=== PATIENT | female | born 1935 | race Caucasian/White ===

== ENCOUNTER 2017-07-08 20:25 | Observation (INO) | payer MEDICARE, MEDICAID ==
[~2017-07-08] VITALS: Ht 147.3 cm; Wt 55.6 kg
[~2017-07-08 20:25] MED LIST: CALCIUM WITH VI1 TA1 PO; CARAFATE 1GM TAB1 GM PO; FENOFIBRATE MI134 MG PO; FENOFIBRATE160 MG PO; HYDROCODONE-APA1 TA1 PO; INDAPAMIDE1.25 MG OR; LEVAQUIN500 MG PO; LOPRESSOR 25MG.25 M1 OR; LOPRESSOR50 MG PO; METOPROLOL SUC100 M1 PO; MIRALAX17 GM/PACK PO; NATURE'S BLE2500 MCG PO; POTASSIUM CHLO10 MEQ PO; PRILOSEC OTC20 MG PO; ROBITUSSIN DM 105 ML PO
[2017-07-08 20:29] VITALS: BP 141/70
--- OUTSIDE RECORDS SUMMARY | 2017-07-08 20:53 | External Medical Summary Rpt | CCD ---
Author Author , RDONEY STEVENS Address Unknown Phone [email or web address] Care Team Providers Care Truck Assembler Name Role Phone Pepito Bloom MD, Unavailable Unavailable Pepito Bloom MD Purpose Continuity of Care Document - 09-09-2013 through 2016 Problems Code Diagnosis DOS Provider Status 276.51 276.51 09-10-2013 [facility] 276.8 276.8 09-10-2013 [place] HYPOPOTASSE [facility] 401.9 401.9 09-10-2013 [place] HYPERTENSIO [facility] N NOS Hospital [id number] 09-10-2013 [place] BRONCOPNEUM [facility] NOS V10.90 V10.90 09-10-2013 [facility] HISTORY OF Hospital UNSPECIFIED MALIGNANT NEOPLASM V14.2 V14.2 09-10[facility]2013 [facility] V14.8 V14.8 09-10-2013 [facility] ALLERGY [place] [facility] V58.69 V58.69 OTH 09-10-2013 [place] MED,,[facility] ENT USE Hospital Allergies, Adverse Reactions, Alerts Type Drug Allergy Propensity to adverse reactions to drug Adverse Reaction to Substance Substance Reaction Severity SULFA (sulfonamide) Unknown Unknown Cephalexin Unknown Unknown Ibuprofen Unknown Unknown Phenobarbital Unknown Unknown Tetanus Toxoid Unknown Unknown Aspirin Unknown Unknown Medications Na ND Rx Da Fi Fi Am Da Di Ph RX Ph St me C No te ll ll ou ys ag ar # ys at rm s nt no ma ic us Or Da si cy ia de te s n re d LE 00 01 0 No VA 59 -0 LB 12 4- Lo UT 91 20 ng ER 92 14 er OL 3 Ac 0. ti 63 ve MG /3 ML NE B PO 00 01 0 No TA 40 -0 SS 97 3- Lo IU 07 20 ng M 42 14 er CL 6 Ac 10 ti ve ME Q/ 10 0 ML SO L LE 50 01 1 No VA 45 -0 QU 80 3- Lo IN 16 20 ng -D 80 14 er 5W 1 Ac 50 ti 0 ve MG /1 00 ML BA G SO 00 01 1 No DI 40 -0 UM 97 3- Lo 98 20 ng CH 30 14 er LO 9 RI Ac DE ti ve 0. 9% SO SHARON TI ON LO 00 01 1 No VE 07 -0 NO 50 3- Lo X 62 20 ng 40 04 14 er 1 MG Ac /0 ti .4 ve ML SY RI NG E IP 00 01 1 No RA 48 -0 T- 70 3- Lo AL 20 20 ng BU 10 14 er T 1 0. Ac 5- ti 3( ve 2. 5) MG /3 ML Vital Signs 09-10-2013 13:39 Name Value Interpretat Reference Comment ion Range Body 97.8 [degF] Temperature BP 93 mm[Hg] Diastolic BP Systolic 140 mm[Hg] Heart 82 /min Rate/Pulse Respiratory 20 /min Rate 09-10-2013 08:36 Name Value Interpretat Reference Comment ion Range O2% 97 % 09-09-2013 15:42 Name Value Interpretat Reference Comment ion Range O2% 97 % 09-09-2013 10:30 Name Value Interpretat Reference Comment ion Range Body 97.7 [degF] Temperature BP 74 mm[Hg] Diastolic BP Systolic 155 mm[Hg] Heart 75 /min Rate/Pulse Height 147.32 cm Respiratory 20 /min Rate Weight 110 [lb_av] Measured Weight 50.094 kg Measured Results Labs Lab Lab Date Result Refere Interp Status Commen Order Detail nces retati t Range on BASIC METABOLIC PANEL (09-10-2013 06:25) Glucose 99 74-106 complet 014 mg/dL ed Bld-mCn 06:25 c BUN 4 mg/dL 7-18 complet Bld-mCn 014 ed c 06:25 Creat 0.6 0.6-1.0 complet SerPl-m 014 mg/dL ed Cnc 06:25 Creat 63 50-200 complet Cl 014 ML/MIN ed predict 06:25 ed SerPl C-G-vRa te GFR/BSA 97 59- complet .pred 014 ML/MIN ed SerPl 06:25 Schwart z-vRate Sodium 144 136-145 complet SerPl-s 014 mmoL/L ed Cnc 06:25 Potassi 2 3.0 3.5-5.1 complet um 014 mmoL/L ed SerPl-s 06:25 Cnc Chlorid 107 98-107 complet e 014 mmoL/L ed SerPl-s 06:25 Cnc CO2 30 21.0-32 complet SerPl-s 014 mmoL/L .0 ed Cnc 06:25 Calcium 2 8.0 8.5-10. complet 014 mg/dL 1 ed SerPl-m 06:25 Cnc CBC with AUTO DIFF (09-10-2013 06:25) WBC # -04-2 3.7 4.8-10. complet Bld 014 K/MM3 8 ed Auto 06:25 RBC # 09-10-2 4.40 4.2-5.4 complet Bld 014 M/mm3 ed Auto 06:25 Hgb 2 13.2 12.2-16 complet Bld-mCn 014 g/dL .2 ed c 06:25 Hct Fr 39.3 % 37.0-47 complet Bld 014 .0 ed 06:25 MCV RBC 09-10-2 89.4 fl 82.2-97 complet 014 .8 ed 06:25 MCH RBC 09-10-2 30.0 pg 27-31.2 complet Qn 014 ed Auto 06:25 MEAN 33.6 31.8-35 complet CORPUSC 014 g/dl .4 ed ULAR 06:25 HGB CONC RDW RBC 09-10-2 14.6 % 11.5-17 complet Auto 014 .5 ed 06:25 Platele 2 106 142-424 complet t Bld 014 K/mm3 ed Ql 06:25 Manual MEAN 2 8.8 fl 7.4-10. complet PLATELE 014 4 ed T 06:25 VOLUME Granulo 09-10-2 43.2 % 37.0-80 complet cytes 014 .0 ed Fr Bld 06:25 Auto LYMPH % 09-10-2 45.2 % 10-50.0 complet 014 ed 06:25 Monocyt 09-10-2 10.4 % 1.7-9.3 complet es Fr 014 ed Bld 06:25 Auto Eosinop 09-10-2 1.0 % 0.1-12. complet hil Fr 014 0 ed Bld 06:25 Auto Basophi 09-10-2 0.3 % 0.1-2.0 complet ls Fr 014 ed Bld 06:25 Auto Granulo 09-10-2 1.6 1.8-7.8 complet cytes # 014 K/mm3 ed Bld 06:25 Auto Lymphoc 09-10-2 1.7 0.7-4.5 complet ytes Fr 014 K/mm3 ed Bld 06:25 Auto Monocyt 09-10-2 0.4 0.1-1.0 complet es # 014 K/mm3 ed Bld 06:25 Auto Eosinop 09-10-2 0.0 0.0-0.4 complet hil # 014 K/mm3 ed Bld 06:25 Auto Basophi 09-10-2 0.0 0-0.2 complet ls # 014 K/MM3 ed Bld 06:25 Auto URINALYSIS/COMPLETE (09-09-2013 13:00) URINE DK YELLOW complet COLOR 014 YELLOW ed 13:00 URINE SL CLEAR complet APPEARA 014 CLOUDY ed NCE 13:00 URINE NEGATIV NEG complet GLUCOSE 014 E ed - 13:00 DIPSTIC K URINE NEGATIV NEG complet BILIRUB 014 E ed IN - 13:00 DIPSTIC K URINE NEGATIV NEG complet KETONE 014 E mg/dL ed 13:00 URINE 1.015 1.005-1 complet SPECIFI 014 UNK .030 ed C 13:00 GRAVITY URINE TRACE-I NEG complet BLOOD 014 NTACT ed 13:00 URINE 7.5 UNK 5.0-8.5 complet PH 014 ed 13:00 URINE NEGATIV NEG complet PROTEIN 014 E mg/dL ed - 13:00 DIPSTIC K URINE 1.0 NEG complet UROBILI 014 E.U./dL ed NOGEN - 13:00 DIPSTIC K URINE NEGATIV NEG complet NITRATE 014 E ed - 13:00 DIPSTIC K URINE 1+ NEG complet LEUK 014 ed ESTERAS 13:00 E URINE OCC 0 complet RBC 014 rbc/hpf ed 13:00 URINE 3-5 O complet WBC 014 wbc/hpf ed 13:00 COMPREHENSIVE METABOLIC PANEL (09-09-2013 12:25) Glucose 102 74-106 complet 014 mg/dL ed Bld-mCn 12:25 c BUN 8 mg/dL 7-18 complet Bld-mCn 014 ed c 12:25 Creat 0.6 0.6-1.0 complet SerPl-m 014 mg/dL ed Cnc 12:25 GFR/BSA 97 59- complet .pred 014 ML/MIN ed SerPl 12:25 Schwart z-vRate Sodium 142 136-145 complet SerPl-s 014 mmoL/L ed Cnc 12:25 Potassi 2.9 3.5-5.1 Low complet um 014 mmoL/L alert ed SerPl-s 12:25 Cnc Chlorid 103 98-107 complet e 014 mmoL/L ed SerPl-s 12:25 Cnc CO2 31 21.0-32 complet SerPl-s 014 mmoL/L .0 ed Cnc 12:25 Calcium 8.3 8.5-10. complet 014 mg/dL 1 ed SerPl-m 12:25 Cnc Prot 6.3 6.4-8.2 complet SerPl-m 014 gm/dL ed Cnc 12:25 Albumin 2.5 3.4-5.0 complet 014 gm/dL ed SerPl-m 12:25 Cnc Globuli 3.8 1.3-3.2 complet n 014 gm/dL ed Ser-mCn 12:25 c Albumin 0.7 UNK 1.1-1.8 complet /Glob 014 ed SerPl-m 12:25 Rto Bilirub 0.5 0.2-1.0 complet 014 mg/dL ed SerPl-m 12:25 Cnc AST 18 U/L 15-37 complet SerPl-c 014 ed Cnc 12:25 ALT -03-2 32 U/L 30-65 complet SerPl-c 014 ed Cnc 12:25 ALP -03-2 86 U/L 50-136 complet SerPl-c 014 ed Cnc 12:25 CBC with AUTO DIFF (09-09-2013 12:25) WBC # 01-03-2 5.6 4.8-10. complet Bld 014 K/MM3 8 ed Auto 12:25 RBC # 01-03-2 4.72 4.2-5.4 complet Bld 014 M/mm3 ed Auto 12:25 Hgb -03-2 14.2 12.2-16 complet Bld-mCn 014 g/dL .2 ed c 12:25 Hct Fr 03-2 41.8 % 37.0-47 complet Bld 014 .0 ed 12:25 MCV RBC -03-2 88.5 fl 82.2-97 complet 014 .8 ed 12:25 MCH RBC 03-2 30.1 pg 27-31.2 complet Qn 014 ed Auto 12:25 MEAN 09-09-2 34.0 31.8-35 complet CORPUSC 014 g/dl .4 ed ULAR 12:25 HGB CONC RDW RBC 03-2 14.8 % 11.5-17 complet Auto 014 .5 ed 12:25 Platele -03-2 138 142-424 complet t Bld 014 K/mm3 ed Ql 12:25 Manual MEAN 03-2 8.6 fl 7.4-10. complet PLATELE 014 4 ed T 12:25 VOLUME Granulo -03-2 75.8 % 37.0-80 complet cytes 014 .0 ed Fr Bld 12:25 Auto LYMPH % -03-2 15.7 % 10-50.0 complet 014 ed 12:25 Monocyt -03-2 7.8 % 1.7-9.3 complet es Fr 014 ed Bld 12:25 Auto Eosinop -03-2 0.4 % 0.1-12. complet hil Fr 014 0 ed Bld 12:25 Auto Basophi -03-2 0.2 % 0.1-2.0 complet ls Fr 014 ed Bld 12:25 Auto Granulo -03-2 4.2 1.8-7.8 complet cytes # 014 K/mm3 ed Bld 12:25 Auto Lymphoc 09-09-2 0.9 0.7-4.5 complet ytes Fr 014 K/mm3 ed Bld 12:25 Auto Monocyt 09-09-2 0.4 0.1-1.0 complet es # 014 K/mm3 ed Bld 12:25 Auto Eosinop 09-09-2 0.0 0.0-0.4 complet hil # 014 K/mm3 ed Bld 12:25 Auto Basophi 2 0.0 0-0.2 complet ls # 014 K/MM3 ed Bld 12:25 Auto MYCOPLASMA IGM (RAPID) (09-09-2013 12:25) MYCOPLA 2 NON-SHELL NONREAC complet SMA IGM 014 CTIVE TIVE ed 12:25 (RAPID) Encounters Encounter Start End Date Code Location Performer Type Date Inpatient IMP Jim Bloom MD ([place]) 4 11:30 4 13:55 [facility]
--- OUTSIDE RECORDS SUMMARY | 2017-07-08 20:53 | External Medical Summary Rpt | CCD ---
Author Author , RODNEY STEVENS Address Unknown Phone .Sqrrl Care Team Providers Care Barrel Roller Name Role Phone Pepito Bloom MD, Unavailable Unavailable Pepito Bloom MD Purpose Continuity of Care Document - 09-09-2013 through 2016 Problems Code Diagnosis DOS Provider Status 276.51 276.51 09-10-2013 [facility] 276.8 276.8 09-10-[address] [place] [address] [facility] 401.9 401.9 09-10-2013 [place] HYPERTENSIO [facility] N NOS Hospital 485 485 09-10-2013 [place] BRONCOPNEUM [facility] NOS V10.90 V10.90 09-10-2013 [facility] HISTORY OF Hospital UNSPECIFIED MALIGNANT NEOPLASM V14.2 V14.2 09-10[facility] V14.8 V14.8 09-10-2013 [facility] ALLERGY [facility] V58.69 V58.69 OTH 09-10-2013 [place] MED,,[facility] ENT USE Hospital Allergies, Adverse Reactions, [...] Bloom MD ([place]) 4 11:30 4 13:55 [facility]
--- OUTSIDE RECORDS SUMMARY | 2017-07-08 20:54 | External Medical Summary Rpt | CCD ---
Author Author , RODNEY STEVENS Address Unknown Phone [email or web address] Immunization Name Date Rout CVX Reac Dose Comm Prov Is Faci e tion ent ider Refu lity Give sed n Infl 09-1 0.5 Hist PD20 No PD20 uenz 1-20 mL oric 255 255 a 17 al Quad Info rmat W/Pr ion es - Sour ce Unsp ecif ied PPV2 02-0 Intr 33 0.5 Hist PD20 No PD20 3 3-20 amus mL oric 255 255 17 cula al r Info rmat ion - Sour ce Unsp ecif ied Td 06-0 Intr 9 999 Hist H149 No H149 (chilo 5-19 amus oric lt), 96 cula al r Info adso rmat rbed ion - Sour ce Unsp ecif ied
--- OUTSIDE RECORDS SUMMARY | 2017-07-08 20:54 | External Medical Summary Rpt ---
Author Author RODNEY Ginger, [employer] Address Unknown Phone Unavailable Results Comprehensive metabolic 2000 panel in Serum or Plasma Observa Value Referen Units Interpr Notes Date tion ce etation Range Albumin/G 1.1 - 1.8 No Low No Sep 12 lobulin informati informati 2017 [Mass on in on in 10:03 AM ratio] in source source Serum or data data Plasma Albumin 3.4 - 5.0 gm/dL Low No Sep 12 [Mass/vol informati 2017 ume] in on in 10:03 AM Serum or source Plasma data Alkaline 46 - 116 U/L Normal No Sep 12 phosphata informati 2017 se on in 10:03 AM [Enzymati source c data activity/ volume] in Serum or Plasma Bilirubin 0.2 - 1.0 mg/dL Normal No Sep 12 .total informati 2017 [Mass/vol on in 10:03 AM ume] in source Serum or data Plasma Urea 7 - 18 mg/dL Normal No Sep 12 nitrogen informati 2017 [Mass/vol on in 10:03 AM ume] in source Serum or data Plasma Calcium 8.5 - mg/dL Normal No Sep 12 [Mass/vol 10.1 informati 2017 ume] in on in 10:03 AM Serum or source Plasma data Chloride 98 - 107 mmoL/L Normal No Sep 12 [Moles/vo informati 2017 lume] in on in 10:03 AM Serum or source Plasma data Carbon 21.0 - mmoL/L High No Sep 12 dioxide, 32.0 informati 2017 total on in 10:03 AM [Moles/vo source lume] in data Serum or Plasma Creatinin 0.55 - mg/dL Low No Sep 12 e 1.02 informati 2017 [Mass/vol on in 10:03 AM ume] in source Serum or data Plasma Estimated 59- ML/MIN No REFERENCE Sep 12 informati RANGE: 2017 glomerula on in >60 10:03 AM r source ML/MIN/1. filtratio data 73 SQUARE n rate METERSIf (GF this patient is -A merican, then multiply theresult by 1.210. Globulin 1.3 - 3.2 gm/dL High No Sep 12 [Mass/vol informati 2016 ume] in on in 10:03 AM Serum source data Glucose 74 - 106 mg/dL Normal No Sep 12 [Mass/vol informati 2016 ume] in on in 10:03 AM Serum or source Plasma data Potassium 3.5 - 5.1 mmoL/L Normal No Sep 12 inform2016 [Moles/vo on in 10:03 AM lume] in source Serum or data Plasma Sodium 136 - 145 mmoL/L Normal No Sep 12 [Moles/vo informati 2016 lume] in on in 10:03 AM Serum or source Plasma data Aspartate 15 - 37 U/L Normal No Sep 12 inform2016 aminotran on in 10:03 AM sferase source [Enzymati data c activity/ volume] in Serum or Plasma Alanine 12 - 78 U/L Normal No Sep 12 aminotran inform2016 sferase on in 10:03 AM [Enzymati source c data activity/ volume] in Serum or Plasma Protein 6.4 - 8.2 gm/dL Normal No Sep 12 [Mass/vol informati 2017 ume] in on in 10:03 AM Serum or source Plasma data Lipid 1996 panel in Serum or Plasma Observa Value Referen Units Interpr Notes Date tion ce etation Range Cholester < 200 mg/dL No No Sep 12 ol informati inform2016 [Moles/vo on in on in 10:03 AM lume] in source source Unspecifi data data ed specimen Cholester 40 - 60 MG/DL High No Sep 12 ol in HDL informati 2016 on in 10:03 AM [Mass/vol source ume] in data Serum or Plasma Cholester 0 - 130 mg/dL Normal No Sep 12 ol in LDL informati 2017 on in 10:03 AM [Mass/vol source ume] in data Serum or Plasma by calculati on Triglycer 30 - 200 mg/dL Normal No Sep 12 raymond inform2016 [Moles/vo on in 10:03 AM lume] in source Serum or data Plasma Cholester 0 - 40 No Normal No Sep 12 ol in informati informati 2017 VLDL on in on in 10:03 AM [Mass/vol source source ume] in data data Serum or Plasma Thyrotropin [Units/volume] in Serum or Plasma Observa Value Referen Units Interpr Notes Date tion ce etation Range Thyrotrop 0.358 - uIU/ml No No Sep 12 in 3.740 informati inform2016 [Units/vo on in on in 10:03 AM lume] in source source Serum or data data Plasma CBC W Auto Differential panel in Blood Observa Value Referen Units Interpr Notes Date tion ce etation Range Basophils 0 - 0.2 K/MM3 Normal No Sep 12 inform2016 [#/volume on in 10:03 AM ] in source Blood by data Automated count Basophils 0.1 - 2.0 % Normal No Sep 12 /100 inform2016 leukocyte on in 10:03 AM s in source Blood by data Automated count Eosinophi 0.0 - 0.4 K/mm3 Normal No Sep 12 ls inform2016 [#/volume on in 10:03 AM ] in source Blood by data Automated count Eosinophi 0.1 - % Normal No Sep 12 ls/100 12.0 inform2016 leukocyte on in 10:03 AM s in source Blood by data Automated count Granulocy 1.8 - 7.8 K/mm3 Normal No Sep 12 estefanía 2016 [#/volume on in 10:03 AM ] in source Blood by data Automated count Granulocy 37.0 - % Normal No Sep 12 estefanía/100 80.0 inform2016 leukocyte on in 10:03 AM s in source Blood by data Automated count Hematocri 37.0 - % Normal No Sep 12 t [Volume 47.0 informati 2016 on in 10:03 AM Fraction] source of Blood data Hemoglobi 12.2 - g/dL Normal No Sep 12 n 16.2 inform2016 [Mass/vol on in 10:03 AM ume] in source Blood data Lymphocyt 0.7 - 4.5 K/mm3 Normal No Sep 12 es inform2016 [#/volume on in 10:03 AM ] in source Unspecifi data ed specimen by Automated count Lymphocyt 10 - 50.0 % Normal No Sep 12 es inform2016 [#/volume on in 10:03 AM ] in source Unspecifi data ed specimen by Automated count Erythrocy 27 - 31.2 pg Normal No Sep 12 te mean inform 2017 corpuscul on in 10:03 AM ar source hemoglobi data n [Entitic mass] Erythrocy 31.8 - g/dl Normal No Sep 12 te mean 35.4 inform2016 corpuscul on in 10:03 AM ar source hemoglobi data n concentra tion [Mass/vol ume] by Automated count Erythrocy 82.2 - fl Normal No Sep 12 te mean 97.8 inform2016 corpuscul on in 10:03 AM ar volume source [Entitic data volume] by Automated count Monocytes 0.1 - 1.0 K/mm3 Normal No Sep 12 inform2016 [#/volume on in 10:03 AM ] in source Blood by data Automated count Monocytes 1.7 - 9.3 % Normal No Sep 12 /100 inform 2017 leukocyte on in 10:03 AM s in source Blood by data Automated count Platelet 7.4 - fl Normal No Sep 12 mean 10.4 inform2016 volume on in 10:03 AM [Entitic source volume] data in Blood by Automated count Platelets 142 - 424 K/mm3 No No Sep 12 informati informati 2016 [#/volume on in on in 10:03 AM ] in source source Blood data data Erythrocy 4.2 - 5.4 M/mm3 Normal No Sep 12 estefanía inform2016 [#/volume on in 10:03 AM ] in source Amniotic data fluid Erythrocy 11.5 - % Normal No Sep 12 te 17.5 inform2016 distribut on in 10:03 AM ion width source [Entitic data volume] by Automated count Leukocyte 4.8 - K/MM3 Normal No Sep 12 s 10.8 informati 2016 [#/volume on in 10:03 AM ] in source Blood data
--- OUTSIDE RECORDS SUMMARY | 2017-07-08 20:54 | External Medical Summary Rpt | CCD ---
Author Author , RODNEY STEVENS Address Unknown Phone [email or web address] Immunization Name Date Rout CVX Reac Dose [...]
--- OUTSIDE RECORDS SUMMARY | 2017-07-08 20:54 | External Medical Summary Rpt | CCD ---
Author Author [employer] Address Unknown Phone Unavailable Purpose Continuity of Care Document - through 2016
--- NOTE | 2017-07-08 20:59 | Emergency Room Report ---
History of Present Illness Time Seen by 2030 Presenting Problem in Triage Pt arrived:Wheelchair Presenting Problem:Pt. has been vomiting X 3 days. She also has chills this evening. 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 N Clinical Suspician of Infection? N Mental Status: 1 - Regular (Normal Baseline) Sepsis Risk: Have you (or family members/close friends) recently traveled outside the [place]? N If Yes, where/when: Have you had exposure to infectious disease within the past month? N TB? Other? Specify: Source patient, RN notes reviewed, family, old records Exam Limitations no limitations Comment pt with abd pain and vomiting over the last 2 days - no diarrhea and no trauma- reports a fib - no cough Cardiac Chest Pain Chest pain indicative of cardiac No Timing/Duration this evening Severity moderate ALLERGIES Coded Allergies: aspirin (Severe, S-DIFF. BREATHING 01/11/16) Sulfa (Sulfonamide Antibiotics) (Intermediate, I-RASH 01/11/16) ibuprofen (Intermediate, I-RASH 01/11/16) Tetanus Vaccines and Toxoid (TETANUS VACCINES & TOXOID) (SWELLING 01/11/16) cephalexin (UNKNOWN REACTION 01/11/16) phenobarbital (UNKNOWN 01/11/16) promethazine (From PHENERGAN) (01/11/16) Home Medications Reported Medications Metoprolol Tartrate (Lopressor) 50 MG PO DAILY CALCIUM CARBONATE/VITAMIN D3 (Calcium 600 + Vit D 400 Tablet) 1 TAB PO DAILY Sucralfate (Carafate Tab) 1 GM PO BID Polyethylene Glycol 3350 (Miralax) 17 GM PO DAILY Indapamide 1.25 MG OR DAILY FENOFIBRATE (Fenofibrate) 134 MG PO DAILY CYANOCOBALAMIN (VITAMIN B-12) (Vitamin B-12) 2,500 MCG PO DAILY Potassium Chloride (POTASSIUM CHLORIDE 10mEq CAP) 10 MEQ PO DAILY #30 History Medical History General CAD? No Angina: Yes [place]: No Hypertension? Yes Hyperlipidemia? Yes CHF? No DVT? No PE? No COPD? No Asthma? No Anemia? No GERD? No Gastric ulcers? No GI Bleed? No Hernia? Yes Thyroid Problems? No Hypothyroidism? No CVA? No Seizures? No Diabetes? No Insulin Dependent: No Insulin Pump: No Home FSBS? No Renal Insuffiency? No End Stage Renal Disease? No UTI? Yes Stones? No BPH? No GB Disease: Yes Nephritic Syndrome? No Asplenia? No Hepatitis? No Sickle Cell Disease? No Arthritis? No Migraines? No Cataracts? Yes Glaucoma? No MRSA? No HIV? No TB? No Anxiety? No Depression? No Cancer? Yes Site: STOMACH More? No Immunization Hx DT/Tetanus REFUSES Flu Refused Pneumonia Received In Past Surgical Hx Previous Surgery?Y Tubal Ligation SOFIA 2/3 STOMACH D/T CA X2 UMB HERNIA BLADDER TACT INCISIONAL HERNIAS GALLBLADDER LEFT KNEE RIGHT BREAST SURGERY CATARACTS/LENS TRANSPLANT Family History Family Hx Diabetes Yes CAD No Hypertension Yes Hyperlipidemia Yes Cancer Yes TB No Social History Smoking Hx Smoker: Former Smoker Tobacco: No Type Cigarettes Packs/day < 1 Pack Are you/the child exposed to second-hand smoke: No Alcohol Alcohol: No Drugs none Review of Systems All Other Systems Reviewed and Negative Constitutional denies fever Eyes denies drainage ENT denies: ear pain, epistaxis, throat pain. Respiratory denies cough, denies shortness of breath, denies wheezing Cardiovascular denies chest pain, denies syncope Gastrointestinal see HPI, abdominal pain, denies diarrhea, nausea, vomiting Genitourinary denies: dysuria, frequency, hesitancy, hematuria. Musculoskeletal denies back pain, denies joint pain, denies joint swelling, denies neck pain Skin denies rash Psychiatric/Neurological denies headache, denies seizure Physical Exam Vital Signs Vital Signs Date Time Temp Pulse Resp B/P Pulse O2 O2 Flow FiO2 Ox Delivery Rate 07/08 2346 81 16 142/74 94 07/08 2310 78 16 147/69 94 07/08 2201 82 16 128/68 96 07/08 2128 79 16 124/62 96 07/08 2101 72 24 151/62 95 07/08 2029 99.1 74 16 141/70 95 - WBC >12,000 or <4,000 or 10% bands? 2 or more SIRS Criteria Met? B/P:142/74 MAP:93 Creatinine >2.0? UA output<0.5ml/kg/hr for 2 hrs? Platelet count >100,000? Lactate >2.0mmol/1? INR >1.2 or PTT > than 60 sec? Evidence of Organ Dysfunction? Provider documented clinical suspician of infection? N Sepsis Criteria Count: 0 Sepsis Risk: General Appearance no apparent distress Eye Exam - bilateral eye PERRL, bilateral eye EOMI Comment no icterus Ear, Nose, Throat normal ENT inspection Neck non-tender Respiratory Status No: respiratory distress. Lung Sounds bilateral: decreased breath sounds. Cardiovascular systolic murmur, irregularly irregular Peripheral Pulses Pulses normal No Gastrointestinal soft, no organomegaly, no pulsatile mass, no guarding, no rebound Back no CVA tenderness Extremities no calf tenderness, pedal edema Strength 3 Lower Ext (L), 3 Lower Ext (R), 4 Upper Ext (L), 4 Upper Ext (R) Neurologic alert, communication spec II-XII nml as tested Reflexes Reflexes normal No Mental status normal mood/affect Skin no rash cons.w/shingles Medical Decision Making LABS/Meds/Orders Pt receiving controlled substance in ED? No Results/Orders Laboratory Tests 07/08/17 2255: Urine Color YELLOW, Urine Appearance CLEAR, Urine pH 5.5, Ur Specific [place] >= 1.030, Urine Protein 2+ H, Urine Ketones NEGATIVE, Urine Blood 3+ H, Urine Nitrate NEGATIVE, Urine Bilirubin 1+ H, Urine Urobilinogen 1.0, Ur Leukocyte Esterase NEGATIVE, Urine RBC OCC, Urine WBC 3-5, Ur Squamous Epith Cells OCC, Urine Bacteria TRACE, Hyaline Casts OCC, Urine Glucose NEGATIVE 07/08/175: Lactic Acid 2.3 H 07/08/172049: Sodium 139, Potassium 5.5 H, Chloride 107, Carbon Dioxide 28, BUN 12, Creatinine 0.8, Estimated Creat Clear 44 L, Estimated GFR (MDRD) 69, Glucose 137 H, Calcium 9.0, Total Bilirubin 0.6, AST 43 H, ALT 29, Alkaline Phosphatase 74, Creatine Kinase 55, CK-MB (CK-2) Rel Index 3.3, CK and CKMB Interp 1.8, Troponin I < 0.01, Total Protein 6.4, Albumin 2.5 L, Globulin 3.9 H, Albumin/Globulin Ratio 0.6 L, Amylase 49, Lipase 189, WBC 10.0, RBC 5.33, Hgb 14.4, Hct 47.0, MCV 88.2, RDW 14.0, Plt Count 196, MPV 11.4 H, Gran % 70.0, Gran # 7.0, Lymphocytes % 17.7, Monocytes % 10.3 H, Eosinophils % 1.3, Basophils % 0.6, Lymphocytes # 1.8, Monocytes # 1.0, Eosinophils # 0.1, Basophils # 0.1, PUBS MCHC 30.6 L, MCH 27.0 Current Medication Orders Sig/Ritesh Start time Last Medication Dose Route Stop Time Status Admin Levofloxacin/Dextrose 100 ML .STK-MED ONE 07/08 2358 DC IV Levofloxacin/Dextrose 100 ML ONCE ONE 07/08 2345 r 07/08 IV 07/09 0044 2359 Sodium Chloride 1,000 ML .[id number] 07/08 2200 AC 07/08 IV 07/09 0950 215 Sodium Chloride 10 ML PRN PRN 07/08 2200 AC IV 07/09 2150 Sodium Chloride 1,000 ML .STK-MED ONE 07/08 2151 DC IV Sodium Chloride 10 ML PRN PRN 07/08 2100 AC IV 07/09 2056 Orders Procedure Date/time Status DIET-NOTHING BY MOUTH 07/09 B Active Decision to admit 07/08 2346 Active LACTIC ACID FOLLOW UP 07/[address] ABD & PELVIS W/O CONTRAST 07/08 2103 Active ELECTROCARDIOGRAM REQUEST 07/[address] SCAN REQ 07/08 2057 Complete CHEST(2 VIEWS-NOT PORTABLE) 07/08 2057 Active IV SALINE LOCK 07/08 2057 Active URINALYSIS/COMPLETE 07/08 2057 Complete LIPASE 07/08 2057 Complete LACTIC ACID 07/08 2057 Complete COMPLETE METABOLIC PANEL 07/08 2057 Complete CBC WITH AUTO DIFF 07/08 2057 Complete CARDIAC ENZYMES 07/08 2057 Complete AMYLASE 07/08 2057 Complete CM/EKG CM/chief psychology Rhythm Atrial Fibrillation EKG compared w/(date of old), non-spec. ST/Dayanara boldengs XRAY/CT/US XRAY/CT/US 1 XRAY chest XR interpretation by reviewed by me Xray Results abnormal (chronic changes) XRAY/CT/US 2 CT abdomen, pelvis CT interpretation by discussed w/radiologist Time results known: 0001 CT Results abnormal (see report) Departure Departure Time of Disposition 2342 Disposition Still a Patient Clinical Impression Primary Impression: Abdominal pain Qualifiers: Abdominal location: generalized Qualified Code: R10.84 - Generalized abdominal pain Secondary Impressions: A-fib Qualifiers: Atrial fibrillation type: unspecified Qualified Code: I48.91 - Unspecified atrial fibrillation Condition STABLE Referrals Pepito Arrieta MD (Family) discussed with dr arrieta ED Critical Care Critical Care No at 0003
[2017-07-08 21:04] LABS: HEMOGLOBIN 14.4 g/dL (12.2-16.2); LYMPH # 1.8 K/mm3 (0.7-4.5); LYMPH % 17.7 % (10-50.0)
[2017-07-08 21:28] LABS: BUN 12 mg/dL (7-18)
[2017-07-08 21:33] LABS: GFR (ESTIMATED) 69 ML/MIN (59-)
[2017-07-08 22:58] LABS: URINE BLOOD 3+ (NEG)
[2017-07-08 22:59] LABS: URINE BILIRUBIN - DIPSTICK 1+ (NEG)
[2017-07-08 23:11] LABS: URINE SQUAMOUS CELLS OCC #/hpf (0-5)
--- OUTSIDE RECORDS SUMMARY | 2017-07-08 23:51 | External Medical Summary Rpt | CCD ---
Author Author , RODNEY STEVENS Address Unknown Phone [email or web address] Team Providers Care Senior Data Quality Analyst Name Role Phone Pepito Bloom MD, Unavailable Unavailable Pepito Bloom MD Purpose Continuity of Care Document - 09-09-2013 through 2016 Problems Code Diagnosis DOS Provider Status 276.51 276.51 09-10-2013 [facility] 276.8 276.8 09-10-2013 [place] HYPOPOTASSE [facility] 401.9 401.9 09-10-2013 [place] HYPERTENSIO [facility] N NOS Hospital [id number] 09-10-2013 [place] BRONCOPNEUM [facility] Hospital NOS V10.90 V10.90 09-10-2013 [facility] HISTORY OF Hospital UNSPECIFIED MALIGNANT NEOPLASM V14.2 V14.2 [facility]-10[facility] V14.8 V14.8 [facility]-10-[facility] V58.69 V58.69 OTH 09-10-2013 [place] MED,LT,[facility] ENT USE Hospital E55.9 VITAMIN D DEFICIENCY, UNSPECIFIED I10 ESSENTIAL (PRIMARY) HYPERTENSIO N R05 COUGH Allergies, Adverse Reactions, Alerts Type Drug Allergy [...] Order Detail nces retati t Range on Urinalysis with microscopy (07-08-2017 22:55) Urine YELLOW YELLOW complet color 017 YELLOW ed 22:55 L Urine CLEAR CLEAR complet appeara 017 CLEAR L ed nce 22:55 determi nation Bacteri TRACE O complet a 017 TRACE L ed detecti 22:55 on in urine sedimen t by Urine 1+ 1+ L NEG complet total 017 ed bilirub 22:55 in detecti on by test Comment: BILIRUBIN CONFIRMED WITH ICTOTEST Comment: QNS FOR ICTOTEST Urine 3+ 3+ L NEG complet blood 017 ed detecti 22:55 on Glucose = NEG complet ur 017 NEGATIV ed test 22:55 E strip Hyaline OCC OCC NONE complet casts 017 L ed detecti 22:55 #/lpf on in urine sedimen Urine NEGATIV NEG complet ketones 017 E ed 22:55 NEGATIV detecti E L on by mg/dL automat ed estefanía Mucus NEGATIV NEG complet detecti 017 E ed on in 22:55 NEGATIV urine E L sedimen t by lig Urine NEGATIV NEG complet nitrite 017 E ed 22:55 NEGATIV detecti E L on by test strip Urine = 5.5 5.0-8.5 complet pH 017 ed 22:55 Urine 2 + NEG complet protein 017 mg/dL ed 22:55 measure ment by automat ed t Erythro OCC OCC 0 complet cytes 017 L ed detecti 22:55 rbc/hpf on in urine sedimen t Urine > = 1.005-1 complet specifi 017 1.030 .030 ed c 22:55 gravity measure ment [place] OCC OCC 0-5 complet s 017 L ed epithel 22:55 #/hpf ial cells detecti on in u Urine 1.0 1.0 NEG complet urobili 017 L ed nogen 22:55 E.U./dL detecti on by test str Urine 3 - 5 O complet leukocy 017 wbc/hpf ed estefanía 22:55 count (number /volume ) Blood lactic acid measurement (moles/vol (07-08-2017 22:15) Blood = 2.3 0.4-2.0 complet lactic 017 mmol/L ed acid 22:15 measure ment (moles/ vol Comment: An elevated Lactic Acid is suggestive of sepsis and should Comment: be repeated within 6 hours of initial testing. CBC w auto diff (07-08-2017 20:50) Baso % = 0.6 % 0.1-2.0 complet 017 ed 20:50 Automat = 0.1 0.0-0.4 complet ed 017 K/mm3 ed blood 20:50 eosinop hil count Automat = 1.3 % 0.1-12. complet ed 017 0 ed blood 20:50 eosinop hils/10 0 leukocy t Blood = 7.0 1.8-7.8 complet granulo 017 K/mm3 ed cytes 20:50 automat ed count (numb Granulo = 70.0 37.0-80 complet cyte 017 % .0 ed percent 20:50 age Blood = 47.0 37.0-47 complet hematoc 017 % .0 ed rit 20:50 (volume fractio n) Blood = 14.4 12.2-16 complet hemoglo 017 g/dL .2 ed bin 20:50 measure ment (mass/v olum Absolut = 1.8 0.7-4.5 complet e 017 K/mm3 ed lymphoc 20:50 yte count Lymphoc = 17.7 10-50.0 complet yte 017 % ed count, 20:50 blood, automat ed Mean = 27.0 27-31.2 complet corpusc 017 pg ed ular 20:50 hemoglo bin (MCH) determ Automat = 30.6 31.8-35 complet ed 017 g/dl .4 ed erythro 20:50 cyte mean corpusc ular h Automat = 88.2 82.2-97 complet ed 017 fl .8 ed erythro 20:50 cyte mean corpusc ular v Absolut = 1.0 0.1-1.0 complet e 017 K/mm3 ed monocyt 20:50 e count [place]hen[place] % = 10.3 1.7-9.3 complet 017 % ed 20:50 Automat = 11.4 7.4-10. complet ed 017 fl 4 ed blood 20:50 platele t mean volume tsering Blood = 196 142-424 complet platele 017 K/mm3 ed t count 20:50 Red = 5.33 4.2-5.4 complet blood 017 M/mm3 ed cell 20:50 count Automat = 14.0 11.5-17 complet ed 017 % .5 ed erythro 20:50 cyte distrib ution width Blood = 10.0 4.8-10. complet leukocy 017 K/MM3 8 ed estefanía 20:50 count (number /volume ) Automat = 0.1 0-0.2 complet ed 017 K/MM3 ed blood 20:50 basophi l count (count/ vo Amylase ser/plas (07-08-2017 20:50) Amylase = 49 25-115 complet 017 U/L ed ser/misha 20:50 s Cardiac enzymes (07-08-2017 20:50) Serum = 3.3 0-4.0 complet or 017 U/L ed plasma 20:50 creatin e kinase MB (CK-M Serum = 1.8 0.0-3.6 complet or 017 ng/mL ed plasma 20:50 creatin e kinase MB measu Serum = 55 26-192 complet or 017 U/L ed plasma 20:50 creatin e kinase measure m Serum < 0.01 0.00-0. complet or 017 ng/mL 06 ed plasma 20:50 troponi n i.cardi ac measu Comprehensive metabolic panel (07-08-2017 20:50) Serum = 2.5 3.4-5.0 complet or 017 gm/dL ed plasma 20:50 albumin measure ment (mas Serum = 0.6 1.1-1.8 complet or 017 ed plasma 20:50 albumin /globul in mass ra Serum = 74 46-116 complet or 017 U/L ed plasma 20:50 alkalin e phospha tase tsering Serum = 0.6 0.2-1.0 complet or 017 mg/dL ed plasma 20:50 total bilirub in measure m Serum = 12 7-18 complet or 017 mg/dL ed plasma 20:50 urea nitroge n measure men Serum = 9.0 8.5-10. complet or 017 mg/dL 1 ed plasma 20:50 calcium measure ment (mas Serum = 107 98-107 complet or 017 mmoL/L ed plasma 20:50 chlorid e measure ment (mo Carbon = 28 21.0-32 complet dioxide 017 mmoL/L .0 ed 20:50 measure ment Serum = 0.8 0.55-1. complet or 017 mg/dL 02 ed plasma 20:50 creatin ine measure ment ( Estimat = 44 50-200 complet ion of 017 ML/MIN ed creatin 20:50 ine renal clearan ce Estimat = 69 59- complet ed 017 ML/MIN ed glomeru 20:50 lar filtrat ion rate (GF Comment: REFERENCE RANGE: >60 ML/MIN/1.73 SQUARE METERS Comment: If this patient is -Gambian, then multiply the Comment: result by 1.210. Serum = 3.9 1.3-3.2 complet globuli 017 gm/dL ed n 20:50 measure ment (mass/v olume) Serum = 137 74-106 complet or 017 mg/dL ed plasma 20:50 glucose measure ment (mas Serum = 5.5 3.5-5.1 complet potassi 017 mmoL/L ed um 20:50 measure ment Serum = 139 136-145 complet sodium 017 mmoL/L ed measure 20:50 ment Serum = 43 15-37 complet or 017 U/L ed plasma 20:50 asparta te aminotr ansfera ALT = 29 12-78 complet (SGPT) 017 U/L ed ser/misha 20:50 s Protein = 6.4 6.4-8.2 complet total 017 gm/dL ed ser/misha 20:50 s Lipase measurement (07-08-2017 20:50) Lipase = 189 73-393 complet measure 017 U/L ed ment 20:50 BASIC METABOLIC PANEL (09-10-2013 06:25) Glucose 99 [...] SerPl-s 014 mmoL/L ed Cnc 06:25 Potassi 3.0 3.5-5.1 complet um 014 mmoL/L ed SerPl-s 06:25 Cnc Chlorid 107 98-107 complet e 014 mmoL/L ed SerPl-s 06:25 Cnc CO2 30 21.0-32 complet SerPl-s 014 mmoL/L .0 ed Cnc 06:25 Calcium 8.0 8.5-10. complet 014 mg/dL 1 ed SerPl-m 06:25 Cnc CBC with AUTO DIFF (09-10-2013 06:25) WBC # 09-10-2 3.7 4.8-10. complet Bld 014 K/MM3 8 ed Auto 06:25 RBC # 04-2 4.40 4.2-5.4 complet Bld 014 M/mm3 ed Auto 06:25 Hgb 13.2 12.2-16 complet Bld-mCn 014 g/dL .2 ed c 06:25 Hct Fr 39.3 % 37.0-47 complet Bld 014 .0 ed 06:25 MCV RBC 89.4 fl 82.2-97 complet 014 .8 ed 06:25 MCH RBC 30.0 pg 27-31.2 complet Qn 014 ed Auto 06:25 MEAN 33.6 31.8-35 complet CORPUSC 014 g/dl .4 ed ULAR 06:25 HGB CONC RDW RBC 14.6 % 11.5-17 complet Auto 014 .5 ed 06:25 Platele 106 142-424 complet t Bld 014 K/mm3 ed Ql 06:25 Manual MEAN 01-04-2 8.8 fl 7.4-10. complet PLATELE 014 4 ed T 06:25 VOLUME Granulo 09-10-2 43.2 % 37.0-80 complet cytes 014 .0 ed Fr Bld 06:25 Auto LYMPH % 09-10-2 45.2 % 10-50.0 complet 014 ed 06:25 Monocyt 09-10-2 10.4 % 1.7-9.3 complet es Fr 014 ed Bld 06:25 Auto Eosinop 04-2 1.0 % 0.1-12. complet hil Fr 014 [...] 014 gm/dL ed Ser-mCn 12:25 c Albumin -03-2 0.7 UNK 1.1-1.8 complet /Glob 014 ed SerPl-m 12:25 Rto Bilirub 03-2 0.5 0.2-1.0 complet 014 mg/dL ed SerPl-m 12:25 Cnc AST 09-09-2 18 U/L 15-37 complet SerPl-c 014 ed Cnc 12:25 ALT -03-2 32 U/L 30-65 complet SerPl-c 014 ed Cnc 12:25 ALP 03-2 86 U/L 50-136 complet SerPl-c 014 ed Cnc 12:25 CBC with AUTO DIFF (09-09-2013 12:25) WBC # 01-03-2 5.6 4.8-10. complet Bld 014 K/MM3 8 ed Auto 12:25 RBC # -03-2 4.72 4.2-5.4 complet Bld 014 M/mm3 ed Auto 12:25 Hgb -03-2 14.2 12.2-16 complet Bld-mCn 014 g/dL .2 ed c 12:25 Hct Fr 09-09-2 41.8 % 37.0-47 complet Bld 014 .0 ed 12:25 MCV RBC -03-2 88.5 fl 82.2-97 complet 014 .8 ed 12:25 MCH RBC -03-2 30.1 pg 27-31.2 complet Qn 014 ed Auto 12:25 MEAN -03-2 34.0 31.8-35 complet CORPUSC 014 g/dl .4 ed ULAR 12:25 HGB CONC RDW RBC -03-2 14.8 % 11.5-17 complet Auto 014 .5 ed 12:25 Platele -03-2 138 142-424 complet t Bld 014 K/mm3 ed Ql 12:25 Manual MEAN -03-2 8.6 fl 7.4-10. complet PLATELE 014 4 ed T 12:25 VOLUME Granulo -03-2 75.8 % 37.0-80 complet cytes 014 .0 ed Fr Bld 12:25 Auto LYMPH % -03-2 15.7 % 10-50.0 complet 014 ed 12:25 Monocyt -03-2 7.8 % 1.7-9.3 complet es Fr 014 ed Bld 12:25 Auto Eosinop -03-2 0.4 % 0.1-12. complet hil Fr 014 0 ed Bld 12:25 Auto Basophi 09-09-2 0.2 % 0.1-2.0 complet ls Fr 014 ed Bld 12:25 Auto Granulo 09-09-2 4.2 1.8-7.8 complet cytes # 014 K/mm3 ed Bld 12:25 Auto Lymphoc 09-09-2 0.9 0.7-4.5 complet ytes Fr 014 K/mm3 ed Bld 12:25 Auto Monocyt 09-09-2 0.4 0.1-1.0 complet es # 014 K/mm3 ed Bld 12:25 Auto Eosinop 09-09-2 0.0 0.0-0.4 complet hil # 014 K/mm3 ed Bld 12:25 Auto Basophi 09-09-2 0.0 0-0.2 complet ls # 014 K/MM3 ed Bld 12:25 Auto MYCOPLASMA IGM (RAPID) (09-09-2013 12:25) MYCOPLA 09-09-2 NON-SHELL NONREAC complet SMA IGM 014 CTIVE TIVE ed 12:25 (RAPID) Encounters Encounter Start End Date Code Location Performer Type Date Inpatient IMP Jim Bloom MD ([place]) 4 11:30 4 13:55 [facility]
--- OUTSIDE RECORDS SUMMARY | 2017-07-08 23:51 | External Medical Summary Rpt | CCD ---
Author Author , RODNEY STEVENS Address Unknown Phone [email or web address] Care Team Providers Care Associate Data Scientist Name Role Phone Pepito Bloom MD, Unavailable Unavailable Pepito Bloom MD Purpose Continuity of Care Document - 09-09-2013 through 2016 Problems Code Diagnosis DOS Provider Status 276.51 276.51 09-10-2013 [facility] 276.8 276.8 09-10-2013 [place] HYPOPOTASSE [facility] 401.9 401.9 09-10-2013 [place] HYPERTENSIO [facility] N NOS Hospital [id number] 09-10-2013 [place] BRONCOPNEUM [facility] NOS V10.90 V10.90 09-10-2013 [facility] HISTORY OF Hospital UNSPECIFIED MALIGNANT NEOPLASM V14.2 V14.2 [facility]-10[facility].8 V14.8 [facility] V58.69 V58.69 OTH 09-10-2013 [place] MED,LT,[facility] ENT USE Hospital E55.9 VITAMIN D [...] 017 K/mm3 ed monocyt 20:50 e count [place] % = 10.3 1.7-9.3 complet 017 % [...] SQUARE METERS Comment: If this patient is -[place]ian, then multiply the Comment: result by 1.210. [...] Bloom MD ([place]) 4 11:30 4 13:55 [facility]
--- OUTSIDE RECORDS SUMMARY | 2017-07-08 23:52 | External Medical Summary Rpt | CCD ---
Author Author , RODNEY STEVENS Address Unknown Phone [email or web address] Immunization Name Date Rout CVX Reac Dose [...]
--- OUTSIDE RECORDS SUMMARY | 2017-07-08 23:52 | External Medical Summary Rpt ---
Author Author RODNEY Ginger, [employer] [employer] Organization [employer] Address Unknown Phone Unavailable Results Lactate [Moles/volume] in Blood Observa Value Referen Units Interpr Notes Date tion ce etation Range Lactate 0.4 - 2.0 mmol/L High An Jul 08 [Moles/vo elevated 2017 lume] in Lactic 10:15 PM Blood Acid is suggestiv e of sepsis and shouldbe repeated within 6 hours of initial testing. CBC W Auto Differential panel in Blood Observa Value Referen Units Interpr Notes Date tion ce etation Range Basophils 0 - 0.2 K/MM3 Normal No Jul 08 informati 2016 8:50 [#/volume on in PM ] in source Blood by data Automated count Basophils 0.1 - 2.0 % Normal No Jul 08 /100 informati 2016 8:50 leukocyte on in PM s in source Blood by data Automated count Eosinophi 0.0 - 0.4 K/mm3 Normal No Jul 08 ls informati 2016 8:50 [#/volume on in PM ] in source Blood by data Automated count Eosinophi 0.1 - % Normal No Jul 08 ls/100 12.0 informati 2016 8:50 leukocyte on in PM s in source Blood by data Automated count Granulocy 1.8 - 7.8 K/mm3 Normal No Jul 08 estefanía informati 2016 8:50 [#/volume on in PM ] in source Blood by data Automated count Granulocy 37.0 - % Normal No Jul 08 estefanía/100 80.0 informati 2016 8:50 leukocyte on in PM s in source Blood by data Automated count Hematocri 37.0 - % Normal No Jul 08 t [Volume 47.0 informati 2016 8:50 on in PM Fraction] source of Blood data Hemoglobi 12.2 - g/dL Normal No Jul 08 n 16.2 informati 2016 8:50 [Mass/vol on in PM ume] in source Blood data Lymphocyt 0.7 - 4.5 K/mm3 Normal No Jul 08 es informati 2016 8:50 [#/volume on in PM ] in source Unspecifi data ed specimen by Automated count Lymphocyt 10 - 50.0 % Normal No Jul 1 es informati 2016 8:50 [#/volume on in PM ] in source Unspecifi data ed specimen by Automated count Erythrocy 27 - 31.2 pg Normal No Jul 08 te mean inform2016 8:50 corpuscul on in PM ar source hemoglobi data n [Entitic mass] Erythrocy 31.8 - g/dl Low No Jul 08 te mean 35.4 informati 2016 8:50 corpuscul on in PM ar source hemoglobi data n concentra tion [Mass/vol ume] by Automated count Erythrocy 82.2 - fl Normal No Jul 08 te mean 97.8 informati 2016 8:50 corpuscul on in PM ar volume source [Entitic data volume] by Automated count Monocytes 0.1 - 1.0 K/mm3 Normal No Jul 1 informati 2016 8:50 [#/volume on in PM ] in source Blood by data Automated count Monocytes 1.7 - 9.3 % High No Jul 1 /100 informati 2017 8:50 leukocyte on in PM s in source Blood by data Automated count Platelet 7.4 - fl High No Jul 08 mean 10.4 informati 2016 8:50 volume on in PM [Entitic source volume] data in Blood by Automated count Platelets 142 - 424 K/mm3 Normal No Jul 1 inform2016 8:50 [#/volume on in PM ] in source Blood data Erythrocy 4.2 - 5.4 M/mm3 Normal No Jul 08 estefanía informati 2016 8:50 [#/volume on in PM ] in source Amniotic data fluid Erythrocy 11.5 - % Normal No Jul 08 te 17.5 informati 2016 8:50 distribut on in PM ion width source [Entitic data volume] by Automated count Leukocyte 4.8 - K/MM3 Normal No Jul 08 s 10.8 informati 2016 8:50 [#/volume on in PM ] in source Blood data Comprehensive metabolic 2000 panel in Serum or Plasma Observa Value Referen Units Interpr Notes Date tion ce etation Range Albumin/G 1.1 - 1.8 No Low No Sep 12 lobulin informati informati 2016 [Mass on in on in 10:03 AM [...] gm/dL High No Sep 12 [Mass/vol informati 2017 ume] in on in 10:03 AM Serum source data Glucose 74 - 106 mg/dL Normal No Sep 12 [Mass/vol informati 2017 ume] in on in 10:03 AM Serum or source Plasma data Potassium 3.5 - 5.1 mmoL/L Normal No Sep 12 informati 2017 [Moles/vo on in 10:03 AM lume] in source Serum or data Plasma Sodium 136 - 145 mmoL/L Normal No Sep 12 [Moles/vo informati 2017 lume] in on in 10:03 AM Serum or source Plasma data Aspartate 15 - 37 U/L Normal No Sep 12 2016 aminotran on in 10:03 AM sferase source [Enzymati data c activity/ volume] in Serum or Plasma Alanine 12 - 78 U/L Normal No Sep 12 aminotran 2016 sferase on in 10:03 AM [Enzymati source c data activity/ volume] in Serum or Plasma Protein 6.4 - 8.2 gm/dL Normal No Sep 12 [Mass/vol inform2016 ume] in on in 10:03 AM Serum or source Plasma data Lipid 1996 panel in Serum or Plasma Observa Value Referen Units Interpr Notes Date tion ce etation Range Cholester < 200 mg/dL No No Sep 12 ol ati 2016 [Moles/vo on in on in 10:03 AM lume] in source source Unspecifi data data ed specimen Cholester 40 - 60 MG/DL High No Sep 12 ol in HDL 2016 on in 10:03 AM [Mass/vol source ume] in data Serum or Plasma Cholester 0 - 130 mg/dL Normal No Sep 12 ol in LDL 2016 on in 10:03 AM [Mass/vol source ume] in data Serum or Plasma by calculati on Triglycer 30 - 200 mg/dL Normal No Sep 12 raymond 2016 [Moles/vo on in 10:03 AM lume] in source Serum or data Plasma Cholester 0 - 40 No Normal No Sep 12 ol in 2016 VLDL on in on in 10:03 AM [Mass/vol source source ume] in data data Serum or Plasma Thyrotropin [Units/volume] in Serum or Plasma Observa Value Referen Units Interpr Notes Date tion ce etation Range Thyrotrop 0.358 - uIU/ml No No Sep 12 in 3.740 inform2016 [Units/vo on in on in 10:03 AM lume] in source source Serum or data data Plasma CBC W Auto Differential panel in Blood Observa Value Referen Units Interpr Notes Date tion ce etation Range Basophils 0 - 0.2 K/MM3 Normal No Sep 12 2016 [#/volume on in 10:03 AM ] in source Blood by data Automated count Basophils 0.1 - 2.0 % Normal No Sep 12 /100 2016 leukocyte on in 10:03 AM s in source Blood by data Automated count Eosinophi 0.0 - 0.4 K/mm3 Normal No Sep 12 ls informati 2017 [#/volume on in 10:03 AM ] in source Blood by data Automated count Eosinophi 0.1 - % Normal No Sep 12 ls/100 12.0 informati 2016 leukocyte on in 10:03 AM s in source Blood by data Automated count Granulocy 1.8 - 7.8 K/mm3 Normal No Sep 12 estefanía informati 2016 [#/volume on in 10:03 AM ] in source Blood by data Automated count Granulocy 37.0 - % Normal No Sep 12 estefanía/100 80.0 informati 2016 leukocyte on in 10:03 AM s in source Blood by data Automated count Hematocri 37.0 - % Normal No Sep 12 t [Volume 47.0 informati 2016 on in 10:03 AM Fraction] source of Blood data Hemoglobi 12.2 - g/dL Normal No Sep 12 n 16.2 informati 2016 [Mass/vol on in 10:03 AM ume] in source Blood data Lymphocyt 0.7 - 4.5 K/mm3 Normal No Sep 12 es inform 2017 [#/volume on in 10:03 AM ] in source Unspecifi data ed specimen by Automated count Lymphocyt 10 - 50.0 % Normal No Sep 12 es informati 2017 [#/volume on in 10:03 AM ] in source Unspecifi data ed specimen by Automated count Erythrocy 27 - 31.2 pg Normal No Sep 12 te mean inform 2017 corpuscul on in 10:03 AM ar source hemoglobi data n [Entitic mass] Erythrocy 31.8 - g/dl Normal No Sep 12 te mean 35.4 informati 2017 corpuscul on in 10:03 AM ar source hemoglobi data n concentra tion [Mass/vol ume] by Automated count Erythrocy 82.2 - fl Normal No Sep 12 te mean 97.8 informati 2017 corpuscul on in 10:03 AM ar volume source [Entitic data volume] by Automated count Monocytes 0.1 - 1.0 K/mm3 Normal No Sep 12 inform2016 [#/volume on in 10:03 AM ] in source Blood by data Automated count Monocytes 1.7 - 9.3 % Normal No Sep 12 /100 informati 2016 leukocyte on in 10:03 AM s in [...] 5.4 M/mm3 Normal No Sep 12 estefanía informati 2016 [#/volume on in 10:03 AM ] in source Amniotic data fluid Erythrocy 11.5 - % Normal No Sep 12 te 17.5 informati 2016 distribut on in 10:03 AM ion width source [Entitic data volume] by Automated count Leukocyte 4.8 - K/MM3 Normal No Sep 12 s 10.8 informati 2016 [#/volume on in 10:03 AM ] in source Blood data
--- OUTSIDE RECORDS SUMMARY | 2017-07-08 23:52 | External Medical Summary Rpt | CCD ---
Author Author , RODNEY STEVENS Address Unknown Phone [email or web address] Immunization Name Date Rout CVX Reac Dose [...]
[2017-07-09 00:30] VITALS: BP 142/80
[2017-07-09 00:58] VITALS: BP 142/80
[2017-07-09] MEDS ORDERED: XARELTO15 MG PO (01:39)
[2017-07-09] MEDS ORDERED: CARTIA XT120 MG PO (01:41)
[2017-07-09 04:30] VITALS: BP 140/81
--- NOTE | 2017-07-09 05:40 | RADIOLOGY REPORT PS360 ---
CT ABD PELVIS W/O CONTRAST CLINICAL INDICATION: Generalized abdominal pain with nausea ABD PAIN ORDERING PHYSICIAN: Pepito Bloom MD PATIENT AGE: 82 years COMPARISON: 06/17/2007 TECHNIQUE: Axial images obtained with sagittal and coronal reformats. PROCEDURE: Oral Contrast: None IV Contrast: None . FINDINGS: Small medium-sized bilateral pleural effusions. Calcification is present at the aortic root and mitral valve annulus. Prior cholecystectomy. There is a small amount of perihepatic fluid. Spleen, pancreas, and adrenal glands are unremarkable. No renal calculi or ureteral calculi or hydronephrosis. Postsurgical changes of the stomach. There is thickening of the hepatic flexure with stranding of the pericolic fat in the right upper quadrant with a minimal amount of fluid in right paracolic gutter. There is diverticulosis noted in the sigmoid colon. There is mild amount fluid in the pelvis there is moderate thickening of presacral fat. There is a small abdominal wall hernia in the left lower abdominal wall laterally containing a loop of small bowel. No intestinal obstruction. There is been prior ventral hernia repair. No evidence of acute appendicitis. There is mild wedging of L2 which may be chronic IMPRESSION: 1. Thickening of the hepatic flexure with stranding of the pericolic fat in the right upper quadrant. These findings may be due to colitis. Diverticulitis also a consideration. Repeat study with IV and oral contrast may to distinguish between the 2. 2. Diverticulosis of the sigmoid colon. 3. Moderate amount of fluid in the pelvis with thickening of the presacral fat. 4. Small spigelian hernia on the left without obstruction. 5. Bilateral pleural effusions
--- NOTE | 2017-07-09 05:42 | RADIOLOGY REPORT PS360 ---
CHEST(2 VIEWS-NOT PORTABLE) HISTORY: Shortness of breath sob ORDERING PHYSICIAN: Pepito Bloom MD PATIENT AGE: 82 years COMPARISON: 05/14/2017 FINDINGS: Normal heart size. Chronic coarsening of the bronchovascular markings consistent with chronic interstitial changes/chronic peribronchial inflammatory change. There are 3 opacities in the right upper lobe which may be due to some underlying pneumonia. Nodular densities cannot be excluded and follow-up is recommended. Small bilateral pleural effusions. No acute bony anomalies. Mild thoracic kyphosis. IMPRESSION: 1. Chronic changes. 2. Bilateral pleural effusions. 3. Right upper lobe infiltrate versus underlying nodular opacities
[2017-07-09 07:39] LABS: LYMPH # 1.8 K/mm3 (0.7-4.5); LYMPH % 23.6 % (10-50.0)
--- NOTE | 2017-07-09 07:44 | PHARMACY CLINIC NOTE ---
Patient Demographics Patient Demographics Admission date: 07/09/17 Date: 07/09/17 Time: 0744 Allergies Coded Allergies: aspirin (Severe, S-DIFF. BREATHING 01/11/16) Sulfa (Sulfonamide Antibiotics) (Intermediate, I-RASH 01/11/16) ibuprofen (Intermediate, I-RASH 01/11/16) Tetanus Vaccines and Toxoid (TETANUS VACCINES & TOXOID) (SWELLING 01/11/16) cephalexin (UNKNOWN REACTION 01/11/16) phenobarbital (UNKNOWN 01/11/16) promethazine (From PHENERGAN) (01/11/16) HEIGHT- FT: 4 IN: 10.00 K.594 VTE General Information Labs: Laboratory Tests 07/08 2050 Hematology Hgb (12.2 - 16.2 g/dL) 14.4 Hct (37.0 - 47.0 %) 47.0 Plt Count (142 - 424 K/mm3) 196 Disclaimer The following section includes nursing documentation that has been pulled in for pharmacy review. Patient's VTE score: 1 Patient's VTE Risk: VERY LOW RISK Clinical trial participant? No VTE prophylaxis NQF [id number] VTE prophylaxis ordered? Yes Type of prophylaxis/treatment: ELVIE at 0744
[2017-07-09 07:52] LABS: HEMOGLOBIN 12.8 g/dL (12.2-16.2)
[2017-07-09 08:04] LABS: BUN 13 mg/dL (7-18)
[2017-07-09 08:06] LABS: GFR (ESTIMATED) 81 ML/MIN (59-)
[2017-07-09 08:17] VITALS: BP 168/90
[2017-07-09] MEDS ORDERED: INDAPAMIDE1.25 MG OR (10:35)
[2017-07-09] MEDS ORDERED: CIPRO 500MG TA500 MG PO (13:51)
[2017-07-09 13:52] VITALS: BP 168/90
[2017-07-09] MEDS ORDERED: FLAGYL500 M1 PO (13:52)
--- NOTE | 2017-07-09 14:03 | Discharge Summary Standard ---
Demographics: Admit date: 07/09/17 Chief complaint: abdominal pain, vomiting PRIMARY DIAGNOSIS: ABD PAIN Allergies: Coded Allergies: aspirin (Severe, S-DIFF. BREATHING 01/11/16) Sulfa (Sulfonamide Antibiotics) (Intermediate, I-RASH 01/11/16) ibuprofen (Intermediate, I-RASH 01/11/16) Tetanus Vaccines and Toxoid (TETANUS VACCINES & TOXOID) (SWELLING 01/11/16) cephalexin (UNKNOWN REACTION 01/11/16) phenobarbital (UNKNOWN 01/11/16) promethazine (From PHENERGAN) (01/11/16) History of present illness: History of present illness: 82-year-old female presented to the ED with a 2 day history of abdominal pain, vomiting and increased weakness. She denies any fevers. No diarrhea. In the ED, CT abdomen showed possible colitis versus diverticulitis and a moderate amount of fluid in the pelvis. Electrocardiogram showed atrial fibrillation controlled ventricular response. This is a chronic issue for her. She is on Cardizem, beta blockers and Xarelto. She was started on Levaquin and admitted to acute care for further evaluation. Today, patient reports she has not had any further vomiting. She is tolerating a low-fat soft diet with no further nausea or abdominal pain. She had one episode of diarrhea. Past medical history: Family HX Diabetes Yes CAD No Hypertension Yes Hyperlipidemia Yes Cancer Yes TB No Immunization HX DT/Tetanus Unknown Flu [id number] Pneumonia Received In Past TB Test in last year No General CAD? No Angina: Yes ID: No Hypertension? Yes Hyperlipidemia? Yes CHF? No DVT? No PE? No COPD? No Asthma? No Anemia? No GERD? No Gastric ulcers? No GI Bleed? No Hernia? Yes Thyroid Problems? No Hypothyroidism? No CVA? No Seizures? No Diabetes? No Insulin Dependent: No Insulin Pump: No Home FSBS? No Renal Insuffiency? No UTI? Yes Stones? No BPH? No GB Disease: Yes Nephritic Syndrome? No Asplenia? No Hepatitis? No Sickle Cell Disease? No Arthritis? No Migraines? No Cataracts? Yes Glaucoma? No MRSA? No HIV? No TB? No Anxiety? No Depression? No Cancer? Yes Site: STOMACH More? 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 UMB HERNIA BLADDER TACT INCISIONAL HERNIAS GALLBLADDER LEFT KNEE RIGHT BREAST SURGERY CATARACTS/LENS TRANSPLANT Current home meds: Reported Medications Sucralfate (Carafate Tab) 1 GM PO QID Metoprolol Tartrate (Lopressor) 50 MG PO Q12 Rivaroxaban (Xarelto) 15 MG PO DAILY DILTIAZEM HCL (Cartia Xt) 120 MG PO QAM Indapamide 1.25 MG OR DAILY #30 TAB CYANOCOBALAMIN (VITAMIN B-12) (Vitamin B-12) 2,500 MCG PO DAILY Discontinued Reported Medications Potassium Chloride (POTASSIUM CHLORIDE 10mEq CAP) 20 MEQ PO DAILY #30 CAP DC: 07/09/17 1350 Polyethylene Glycol 3350 (Miralax) 17 GM PO PRN PRN CONSTIPATION Social Hx: Smoking HX Tobacco No Type Cigarettes Packs/day N/A Are you/the child exposed to second-hand smoke: No Alcohol Alcohol: No Hx of Drug Use Drug Use? No Patient's support system is good Review of systems: Constitutional weakness. No: chills, diaphoresis, fever, malaise. Eyes No: no symptoms reported. Ears, Nose, Mouth, Throat No no symptoms reported Respiratory cough (chronic). Cardiovascular No no symptoms reported Gastrointestinal/Abdominal see HPI Genitourinary No: no symptoms reported. Musculoskeletal No: no symptoms reported. Skin No: no symptoms reported. Neurological No: no symptoms reported. Psychiatric No: no symptoms reported. Exam: Lab data for last 24 hours: Laboratory Tests 07/09/17 0650: Sodium 139, Potassium 4.7, Chloride 108 H, Carbon Dioxide 27, BUN 13, Creatinine 0.7, Estimated Creat Clear 56, Estimated GFR (MDRD) 81, Glucose 102, Calcium 8.3 L, Total Bilirubin 0.5, AST 55 H, ALT 36, Alkaline Phosphatase 64, Troponin I < 0.02, Total Protein 5.5 L, Albumin 2.1 L, Globulin 3.4 H, Albumin/Globulin Ratio 0.6 L, WBC 7.7, RBC 4.64, Hgb 12.8, Hct 41.1, MCV 88.6, RDW 14.0, Plt Count 149, MPV 11.4 H, Gran % 62.0, Gran # 4.8, Lymphocytes % 23.6, Monocytes % 12.9 H, Eosinophils % 0.9, Basophils % 0.6, Lymphocytes # 1.8 , Monocytes # 1.0, Eosinophils # 0.1, Basophils # 0.1, PUBS MCHC 31.0 L, MCH 27.4 07/09/17219: Lactic Acid 1.4 07/08/172254: Urine Color YELLOW, Urine Appearance CLEAR, Urine pH 5.5, Ur Specific [place] >= 1.030, Urine Protein 2+ H, Urine Ketones NEGATIVE, Urine Blood 3+ H, Urine Nitrate NEGATIVE, Urine Bilirubin 1+ H, Urine Urobilinogen 1.0, Ur Leukocyte Esterase NEGATIVE, Urine RBC OCC, Urine WBC 3-5, Ur Squamous Epith Cells OCC, Urine Bacteria TRACE, Hyaline Casts OCC, Urine Glucose NEGATIVE 07/08/172214: Lactic Acid 2.3 H 07/08/172049: Sodium 139, Potassium 5.5 H, Chloride 107, Carbon Dioxide 28, BUN 12, Creatinine 0.8, Estimated Creat Clear 44 L, Estimated GFR (MDRD) 69, Glucose 137 H, Calcium 9.0, Total Bilirubin 0.6, AST 43 H, ALT 29, Alkaline Phosphatase 74, Creatine Kinase 55, CK-MB (CK-2) Rel Index 3.3, CK and CKMB Interp 1.8, Troponin I < 0.01, Total Protein 6.4, Albumin 2.5 L, Globulin 3.9 H, Albumin/Globulin Ratio 0.6 L, Amylase 49, Lipase 189, WBC 10.0, RBC 5.33, Hgb 14.4, Hct 47.0, MCV 88.2, RDW 14.0, Plt Count 196, MPV 11.4 H, Gran % 70.0, Gran # 7.0, Lymphocytes % 17.7, Monocytes % 10.3 H, Eosinophils % 1.3, Basophils % 0.6, Lymphocytes # 1.8, Monocytes # 1.0, Eosinophils # 0.1, Basophils # 0.1, PUBS MCHC 30.6 L, MCH 27.0 Admission vital signs: 1ST Vital Signs Result Date Time Pulse Ox 95 07/08 2029 B/P 141/70 07/08 2029 Temp 99.1 07/08 2029 Pulse 74 07/08 2029 Resp 16 07/08 2029 O2 Delivery ROOM AIR 07/09 30 Exam General appearance: normal appearance, alert, awake, no acute distress Eyes: anicteric ENT: mucous membranes moist Neck: non-tender, no carotid bruit, no JVD Cardiovascular: regular rate & rhythm, normal peripheral pulses, no peripheral edema Respiratory: fine crackles bilateral bases ABD: non-distended, normal bowel sounds, no rebound, soft, no tenderness, no guarding, no organomegaly Genitourinary: no dysuria, no hematuria Extremities: moves all Musculoskeletal: equal muscle strength, sensation intact Skin: dry, intact, normal color Neuro: alert, no deficit, normal mood/affect, oriented, speech clear Hospital Course Hospital Course: Patient was admitted to acute care. She was given IV infusions of Levaquin. Her diet was slowly advanced which she tolerated well. She has had no further vomiting since admission. She did have 1 episode of diarrhea, no blood or mucus noted in stool. Overall she is feeling significantly better and is ready to go home. Discharge home on Cipro and Flagyl. Her potassium was stopped due to some mild hyperkalemia on admission. Repeat complete metabolic panel in 1 month. See medication reconciliation for complete list. Continue low fat diet. Follow up with Dr. Bloom in 4 days Medications Medications: Discharge meds are as noted. Follow up Follow up in office in: 4 DAYS with: Pepito Bloom MD at 1403
[2017-07-09 14:44] VITALS: BP 168/90
== END 2017-07-09 14:40 | disposition home or self-care (01) ==
LOC: ER 20:25 → 2ND 23:47 → ER 23:47 → 2ND 07-09 00:17
PROVIDERS: Emergency Medicine
DX: R10.84 Generalized abdominal pain (principal); R11.10 Vomiting, unspecified; E87.5 Hyperkalemia; I10 Essential (primary) hypertension; I48.2 Chronic atrial fibrillation; Z79.01 Long term (current) use of anticoagulants; Z79.899 Other long term (current) drug therapy; R19.7 Diarrhea, unspecified; Z88.6 Allergy status to analgesic agent; Z88.7 Allergy status to serum and vaccine; Z88.2 Allergy status to sulfonamides; Z88.8 Allergy status to other drugs, medicaments and biological substances; Z88.1 Allergy status to other antibiotic agents; Z83.3 Family history of diabetes mellitus; Z82.49 Family history of ischemic heart disease and other diseases of the circulatory system; Z83.49 Family history of other endocrine, nutritional and metabolic diseases; Z80.9 Family history of malignant neoplasm, unspecified; Z85.89 Personal history of malignant neoplasm of other organs and systems; Z87.891 Personal history of nicotine dependence
CPT/HCPCS: G0378

== ENCOUNTER 2017-07-13 09:51 | Observation (INO) | payer MEDICARE, MEDICAID ==
[~2017-07-13] VITALS: Ht 147.3 cm; Wt 55.1 kg
[~2017-07-13 09:51] MED LIST changes: +CARTIA XT120 MG PO; +CIPRO 500MG TA500 MG PO; +FLAGYL500 M1 PO; +XARELTO15 MG PO
--- NOTE | 2017-07-13 10:22 | PHARMACY CLINIC NOTE ---
Patient Demographics Patient Demographics Admission date: 07/13/17 Date: 07/13/17 Time: 1021 Allergies Coded Allergies: aspirin (Severe, S-DIFF. BREATHING 01/11/16) Sulfa (Sulfonamide Antibiotics) (Intermediate, I-RASH 01/11/16) ibuprofen (Intermediate, I-RASH 01/11/16) Tetanus Vaccines and Toxoid (TETANUS VACCINES & TOXOID) (SWELLING 01/11/16) cephalexin (UNKNOWN REACTION 01/11/16) phenobarbital (UNKNOWN 01/11/16) promethazine (From PHENERGAN) (01/11/16) HEIGHT- FT: 4 IN: 10.00 VTE General Information Disclaimer The following section includes nursing documentation that has been pulled in for pharmacy review. VTE prophylaxis NQF [id number] VTE prophylaxis ordered? Yes Type of prophylaxis/treatment: ELVIE at 1021
[2017-07-13 11:08] VITALS: BP 144/72
[2017-07-13 11:39] VITALS: BP 144/72
[2017-07-13 11:53] LABS: LYMPH # 1.4 K/mm3 (0.7-4.5); LYMPH % 21.3 % (10-50.0)
[2017-07-13] MEDS ORDERED: FLAGYL500 M1 PO (11:55)
[2017-07-13] MEDS ORDERED: ZOFRAN4 MG PO (11:57)
[2017-07-13 12:09] LABS: HEMOGLOBIN 14.4 g/dL (12.2-16.2)
[2017-07-13 15:31] VITALS: BP 127/71
--- NOTE | 2017-07-13 16:45 | RADIOLOGY REPORT PS360 ---
CT ABD PELVIS W/ CONTRAST CLINICAL INDICATION: Nausea, abdominal pain, colitis COLITIS ORDERING PHYSICIAN: Pepito Bloom MD PATIENT AGE: 82 years COMPARISON: 07/08/2017 TECHNIQUE: Axial images obtained with sagittal and coronal reformats. PROCEDURE: Oral Contrast: Gastroview IV Contrast: 25 mL [id number] . FINDINGS: There are moderate size bilateral pleural effusions with bibasilar atelectatic changes. Diffuse hepatic steatosis. Prior cholecystectomy. Perihepatic fluid once again noted. The spleen, adrenal glands, pancreas are unremarkable. There is a small amount fluid in the portal region and in the hepatorenal space. No hydronephrosis or obstructing ureteral calculus. There is some decreased attenuation within the mid the lower pole the right kidney laterally which is developed since the previous enhanced exam of 06/17/2007 and could be due to an area of cortical scarring or even an area of hydronephrotic. Bladder is decompressed and straight concentric thickening of the wall. There is moderate thickening of the presacral fat small mediastinal amount of fluid in the pelvis not significant changed. Spigelian hernia once again noted in the left lower quadrant containing a loop of small bowel without obstruction No evidence of diverticulitis. The previously noted bowel wall thickening in the hepatic flexure has improved No abnormal bowel wall thickening. There is some sclerosis of the right SI joint. IMPRESSION: 1. Previously noted bowel wall thickening in the hepatic flexure has improved. No bowel wall thickening apparent on today's exam. 2. There is mild diffuse ascites and there are bilateral pleural effusions. No change thickening of the presacral fat. 3. Decreased attenuation within the right renal cortex which could be due to renal scarring or may be seen with polynephritis 4. No change left-sided Spigelian hernia containing a loop small bowel
--- NOTE | 2017-07-13 17:09 | RADIOLOGY REPORT PS360 ---
CHEST(2 VIEWS-NOT PORTABLE) HISTORY: cough ORDERING PHYSICIAN: Pepito Bloom MD PATIENT AGE: 82 years COMPARISON: 07/08/2017 FINDINGS: Right upper lobe infiltrate has improved. There are small bilateral pleural effusions with bibasilar atelectasis not significantly changed. Normal heart size. Chronic pulmonary parenchymal changes once again noted. IMPRESSION: 1. Improvement in right upper lobe infiltrate. 2. Continued small bilateral pleural effusion with bibasilar atelectatic change
[2017-07-13 19:10] VITALS: BP 155/69
--- NOTE | 2017-07-13 19:58 | HISTORY AND PHYSICAL REPORT ---
Demographics: Admit date: 07/13/17 Chief complaint: Weakness/abd pain PRIMARY DIAGNOSIS: WEAKNESS AND ABDOMINAL PAIN Allergies: Coded Allergies: aspirin (Severe, S-DIFF. BREATHING 01/11/16) Sulfa (Sulfonamide Antibiotics) (Intermediate, I-RASH 01/11/16) ibuprofen (Intermediate, I-RASH 01/11/16) Tetanus Vaccines and Toxoid (TETANUS VACCINES & TOXOID) (SWELLING 01/11/16) cephalexin (UNKNOWN REACTION 01/11/16) phenobarbital (UNKNOWN 01/11/16) promethazine (From PHENERGAN) (01/11/16) History of present illness: History of present illness: 82-year-old white female who suffers from chronic emphysema and was recently in observation for diverticulitis/colitis exacerbation and discharged last week on Cipro and Flagyl. She initially did well but had some vomiting at home which she attributed to the Cipro. She stopped this a couple of days ago and came in for hospital recheck today, appeared dehydrated, somewhat orthostatic although had no blood pressure drop, and to continue to have some mild abdominal tenderness. I elected to admit her for observation for repeat CT scan, fluids and lab evaluation. Past medical history: Family HX Family Hx Insignificant Yes Immunization HX DT/Tetanus Refuses Flu [id number] Pneumonia Received In Past TB Test in last year No General CAD? No Angina: Yes OH: No Hypertension? Yes Hyperlipidemia? Yes CHF? No DVT? No PE? No COPD? No Asthma? No Anemia? No GERD? No Gastric ulcers? No GI Bleed? No Hernia? Yes Thyroid Problems? No Hypothyroidism? No CVA? No Seizures? No Diabetes? No Insulin Dependent: No Insulin Pump: No Home FSBS? No Renal Insuffiency? No UTI? Yes Stones? No BPH? No GB Disease: Yes Nephritic Syndrome? No Asplenia? No Hepatitis? No Sickle Cell Disease? No Arthritis? No Migraines? No Cataracts? Yes Glaucoma? No MRSA? No HIV? No TB? No Anxiety? No Depression? No Cancer? Yes Site: STOMACH More? 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 [facility] HERNIA BLADDER TACT INCISIONAL HERNIAS GALLBLADDER LEFT KNEE RIGHT BREAST SURGERY CATARACTS/LENS TRANSPLANT Current home meds: Reported Medications Sucralfate (Carafate Tab) 1 GM PO QID Metoprolol Tartrate (Lopressor) 50 MG PO Q12 Rivaroxaban (Xarelto) 15 MG PO DAILY DILTIAZEM HCL (Cartia Xt) 120 MG PO QAM Indapamide 1.25 MG OR DAILY #30 TAB CYANOCOBALAMIN (VITAMIN B-12) (Vitamin B-12) 2,500 MCG PO DAILY Metronidazole (Flagyl) 500 MG PO TID ONDANSETRON HCL (Zofran 4MG Tab) 4 MG PO PRN PRN N/V Discontinued Reported Medications Potassium Chloride (POTASSIUM CHLORIDE 10mEq CAP) 20 MEQ PO DAILY #30 CAP DC: 07/09/17 1350 Polyethylene Glycol 3350 (Miralax) 17 GM PO PRN PRN CONSTIPATION Social Hx: Smoking HX Packs/day N/A Are you/the child exposed to second-hand smoke: No Alcohol Alcohol: No Hx of Drug Use Drug Use? No Patien't marital status is Patient's support system is excellent Review of systems: Constitutional malaise, weakness. No: fever. Respiratory No: no symptoms reported. Cardiovascular edema, No palpitations Gastrointestinal/Abdominal abdominal pain, No blood streaked bowels, No constipated, No diarrhea, No difficulty swallowing, nausea, poor appetite, poor fluid intake, No rectal bleeding, vomiting Genitourinary No: see HPI, vaginal discharge, dysuria, frequency, hesitancy. Musculoskeletal No: no symptoms reported. Neurological Yes: weakness. No: tingling, parasthesia. Exam: Lab data for last 24 hours: Laboratory Tests 07/13/17 1130: Sodium 137, Potassium 3.4 L, Chloride 103, Carbon Dioxide 31, BUN 9, Creatinine 0.7, Estimated Creat Clear 56, Estimated GFR (MDRD) 81, Glucose 102, Calcium 8.5 , Total Bilirubin 0.6, AST 59 H, ALT 55, Alkaline Phosphatase 70, Total Protein 6.0 L, Albumin 2.4 L, Globulin 3.6 H, Albumin/Globulin Ratio 0.7 L, Amylase 44, Lipase 174, WBC 6.4, RBC 5.31, Hgb 14.4, Hct 45.6, MCV 85.9, RDW 13.8, Plt Count 175, MPV 9.9, Gran % 62.0, Gran # 4.0, Lymphocytes % 21.3, Monocytes % 14.3 H, Eosinophils % 1.1, Basophils % 1.3, Lymphocytes # 1.4, Monocytes # 0.9, Eosinophils # 0.1, Basophils # 0.1, PUBS MCHC 31.5 L, MCH 27.0 Admission vital signs: 1ST Vital Signs Result Date Time Pulse Ox 92 07/13 110 B/P 144/72 07/13 110 O2 Delivery ROOM AIR 07/13 1108 Temp 98.0 07/13 110 Pulse 86 07/13 110 Resp 18 07/13 110 Additional information: Patient is 1+ ankle edema which is new for her. Her lungs are clear, heart rate regular. Abdomen is soft, very mild tenderness in the left lower quadrant which is improved. ENT exam with dry lips. Dry oral mucosa. No thrush -patient is alert and pleasant, no focal neurologic deficit. Plan: Problem List 1. Abdominal pain Plan: Plan will be to admit to hospital. Diagnostic test including labs, CT scan, IV fluids. Followup based on test results. at 1958
[2017-07-13 20:22] VITALS: BP 160/76
[2017-07-14 03:38] LABS: URINE BILIRUBIN - DIPSTICK NEGATIVE (NEG); URINE BLOOD NEGATIVE (NEG)
[2017-07-14 04:26] VITALS: BP 144/64
[2017-07-14 06:18] LABS: LYMPH # 1.2 K/mm3 (0.7-4.5); LYMPH % 18.9 % (10-50.0)
[2017-07-14 06:39] LABS: HEMOGLOBIN 12.9 g/dL (12.2-16.2)
--- NOTE | 2017-07-14 07:12 | ACUTE CARE PROGRESS NOTE (QUA) ---
Progress Notes Subjective Date 07/14/17 Time 0711 Note Overall patient feels somewhat better although she complains of feet and hand swelling. Her vital signs are been normal overnight. She is alert. States that she feels somewhat better and is tolerated clear liquids well and eaten 100 percent of her tray. Lungs are clear, heart rate regular. Abdomen is soft, no tenderness. She does have 1+ edema to feet and hands. Objective Findings Last VS-Temp:98.0 B/P:144/64 Pulse:106 Resp:18 SaO2:96 ROOM AIR Last weight lbs:121 oz:7 K.084 Method:Bed Scales Assessment/Plan Problem List 1. Abdominal pain 2. Hypokalemia Patient condition Improving, patient seems to be improving. I don't really have a good explanation for her overall symptoms other than possible side effect of medications that she was treated with last week for colitis. Plan to advance diet today, replace potassium, low-dose Lasix for her fluid and possible discharge this afternoon if she eats a regular diet and can get up and move around. This inpt stay is expected to cross 2 MNs from start of care No at 0712
--- NOTE | 2017-07-14 07:51 | ACUTE CARE PROGRESS NOTE (QUA) ---
Progress Notes Subjective Date 07/14/17 Time 0730 Note Patient reports shortness of breath this morning. Denies any cough or congestion. No Fevers. CT abdomen showed bilateral pleural effusions. Denies any abdominal pain, nausea, vomiting or diarrhea. Alert and oriented x3. Rate and rhythm regular. No edema. Pulses 2+ bilaterally. Lung sounds with fines crackles RLL. Abdomen, soft, non-tender. Patient/family reports: shortness of breath Nursing reports: no complaints Objective Findings Last VS-Temp:97.8 B/P:158/91 Pulse:113 Resp:20 SaO2:92 ROOM AIR Last weight lbs:121 oz:7 K.084 Method:Bed Scales Reviewed: medications, vital signs, lab results, radiology report Assessment/Plan Problem List 1. Abdominal pain Assessment/Plan: CT scan of abdomen is improved. She denies any abdominal pain this morning. Plan to advance diet, increase ambulation and evaluate response. Will consider discharge later today or tomorrow. 2. Hypokalemia Assessment/Plan: Oral replacement ordered. 3. Pleural effusion Assessment/Plan: IV Lasix x1 this morning. Patient condition Stable Plan: continue current care This inpt stay is expected to cross 2 MNs from start of care No at [id number]
[2017-07-14 07:53] VITALS: BP 158/91
--- NOTE | 2017-07-14 13:41 | DISCHARGE SUMMARY STANDARD ---
Demographics Admit date: 07/13/17 Discharge date: 07/14/17 History of present illness History of present illness 82-year-old white female who suffers from chronic emphysema and was recently in observation for diverticulitis/colitis exacerbation and discharged last week on Cipro and Flagyl. She initially did well but had some vomiting at home which she attributed to the Cipro. She stopped this a couple of days ago and came in for hospital recheck today, appeared dehydrated, somewhat orthostatic although had no blood pressure drop, and to continue to have some mild abdominal tenderness. I elected to admit her for observation for repeat CT scan, fluids and lab evaluation. Hospital Course Hospital Course: Patient was admitted to acute care. IVF's were administered for rehydration. CT abdomen showed improvement of bowel wall thickening, mild diffuse ascites and bilateral pleural effusions. Antibiotics were held. Abdominal pain and nausea have resolved. She reported some shortness of breath this morning. She was given a dose of Lasix IV x1 with good response. Shortness of breath has resolved. She was found to be hypokalemic and potassium replacement was started. Her diet was advanced which she has tolerated well without nausea, abdominal pain or vomiting. She was able to ambulate in the room and has been out of bed most of the day. Discharge home on potassium chloride 20 MEQ po BID. See medication reconciliation for complete list. FU with Dr. Bloom on Thursday. Repeat CBC and CMP prior to appointment. Will consider abdominal US at that time. Discharge diagnoses Problem List 1. Abdominal pain 2. Hypokalemia 3. Pleural effusion Medications Medications: Discharge meds are as noted. Follow up Follow up in office in: 3 DAYS with: Pepito Bloom MD at [id number]
[2017-07-14 14:03] VITALS: BP 158/91
[2017-07-14] MEDS ORDERED: K-DUR 20MEQ TA20 MEQ PO (14:16)
[2017-07-14 14:31] VITALS: BP 158/91
== END 2017-07-14 15:15 | disposition home or self-care (01) ==
LOC: 2ND 09:51 → ICU 09:55
PROVIDERS: Internal Medicine Adolescent Medicine
DX: E86.0 Dehydration (principal); E87.6 Hypokalemia; J43.9 Emphysema, unspecified; I10 Essential (primary) hypertension; R10.9 Unspecified abdominal pain; R60.9 Edema, unspecified; R06.02 Shortness of breath; J90 Pleural effusion, not elsewhere classified; R18.8 Other ascites; Z85.89 Personal history of malignant neoplasm of other organs and systems; Z79.01 Long term (current) use of anticoagulants; Z79.899 Other long term (current) drug therapy
CPT/HCPCS: G0378; Q9967

== ENCOUNTER → 2017-07-17 | Outpatient (CLI) | payer MEDICARE, MEDICAID ==
[~2017-07-17] MED LIST changes: +K-DUR 20MEQ TA20 MEQ PO; +ZOFRAN4 MG PO
[2017-07-17 10:07] LABS: LYMPH # 1.8 K/mm3 (0.7-4.5)
[2017-07-17 10:09] LABS: HEMOGLOBIN 14.8 g/dL (12.2-16.2)
[2017-07-17 11:06] LABS: BUN 3 mg/dL (7-18)
[2017-07-17 11:14] LABS: GFR (ESTIMATED) 119 ML/MIN (59-)
== END ==
LOC: LAB 09:36
PROVIDERS: Nurse Practitioner Family
DX: R10.9 Unspecified abdominal pain (principal); E87.6 Hypokalemia